=== PATIENT | female | born 1935 | race Caucasian/White ===

== ENCOUNTER → 2016-11-29 | Outpatient (CLI) | payer MEDICARE, BC ==
--- NOTE | 2016-11-29 16:00 | BD ---
EXAMINATION TYPE: MG DEXA axial skeleton. DATE OF EXAM: 11/29/2016 2:27 PM COMPARISON: NONE CLINICAL HISTORY: Height: 5 FT 2 1/2 IN Weight: 157 FRAX RISK QUESTIONS: Alcohol (3 or more units per day): YES Family History (Parent hip fracture): NO Glucocorticoids (More than 3mos): NO (Ex: prednisone, prednisolone, methylprednisolone, dexamethasone, and hydrocortisone). History of Fracture in Adulthood: NO Secondary Osteoporosis: 1. Type 1 Diabetes: NO 2. Hyperthyroidism: NO 3. Menopause before 45: YES 4. Malnutrition: NO 5. Chronic liver disease: NO Rheumatoid Arthritis: NO Current Tobacco Use: NO RISK FACTORS HISTORY OF: Drink Alcohol: YES Active: YES Postmenopausal woman: PART HYST AGE 26 Take estrogen and/or progesterone medications: How long: TOOK HORMONES AGE 27-43 MEDICATIONS: Additional Medications: METROPROLOL, Additional History: EXAM MEASUREMENTS: Bone mineral densitometry was performed using the [facility]. Bone mineral density as measured about the Lumbar spine is: ----- L1-L4(G/cm2): 1.349 T Score Values are as follows: ----- L2: 2.2 ----- L3: 1.6 ----- L4: 0.3 ----- L1-L4: 1.4 Bone mineral density has: Increased 14.4% since study of: 2004 Bone mineral density about the R hip (g/cm2): 0.793 Bone mineral density about the L hip (g/cm2): 0.783 T Score values are as follows: -----R Neck: -1.8 -----L Neck: -1.8 -----R Intertrochanter: -1.3 -----L Intertrochanter: -0.8 Bone mineral density has: Decreased -2.4% since study of: 2007 IMPRESSION: Osteopenia (T Score between -2.5 and -1 as noted by T score values There is slightly increased risk of fracture and the patient may be considered for treatment. Re-Screen 1-2 years. DEVAN HIPS NOTE: T-SCORE=SD OF THE YOUNG ADULT MEAN.
--- NOTE | 2016-11-30 11:36 | MM ---
Reason for exam: screening (asymptomatic). Last mammogram was performed 1 year ago. History: Patient is postmenopausal. Family history of breast cancer in 2 sisters at age 70. Took estrogen for 15 years beginning at age 26. Physical Findings: A clinical breast exam by your physician is recommended on an annual basis and results should be correlated with mammographic findings. MG Screening Mammo w CAD Bilateral CC and MLO view(s) were taken. Prior study comparison: November 29, 2015, bilateral MG screening mammo w CAD. September 10, 2013, bilateral digital screening mammo w/CAD. The breast tissue is heterogeneously dense. This may lower the sensitivity of mammography. No significant changes when compared with prior studies. ASSESSMENT: Benign, BI-RAD 2 RECOMMENDATION: Routine screening mammogram of both breasts in 1 year.
== END | disposition home or self-care (01) ==
LOC: RADBDWWP 13:48
PROVIDERS: ATTEND Internal Medicine
DX: Z12.31 Encounter for screening mammogram for malignant neoplasm of breast (principal); M85.88 Other specified disorders of bone density and structure, other site
CPT/HCPCS: 77080; G0202

== ENCOUNTER → 2017-12-19 | Outpatient (CLI) | payer MEDICARE, BC ==
--- NOTE | 2017-12-19 14:34 | XR ---
EXAMINATION TYPE: XR chest 2V DATE OF EXAM: 12/19/2017 COMPARISON: Prior chest x-ray 02/11/2010 HISTORY: Pleurisy, R09.1 TECHNIQUE: Frontal and lateral views of the chest are obtained. FINDINGS: There is no focal air space opacity, pleural effusion, or pneumothorax seen. The cardiac silhouette size is stable, enlarged. Lung volumes are prominent suggesting underlying COPD, some int erstitial prominence again noted at the lung bases. The osseous structures are intact. Minimal densit y at the right costophrenic angle may reflect a small area of scarring or atelectasis. IMPRESSION: Chronic cardiomegaly. Suspect some interstitial lung disease. Additional findings above, consider follow-up as indicated.
== END | disposition home or self-care (01) ==
LOC: RADXRMAIN 11:51
PROVIDERS: ATTEND Internal Medicine
DX: I51.7 Cardiomegaly (principal)
CPT/HCPCS: 71046

== ENCOUNTER → 2019-05-13 | Outpatient (CLI) | payer MEDICARE, BC ==
--- NOTE | 2019-05-13 15:25 | US ---
EXAMINATION TYPE: US pelvis complete transvag DATE OF EXAM: 05/13/2019 COMPARISON: NONE CLINICAL HISTORY: N93.8 dysfunctional uterine bleeding. Intermittent pelvic bleeding for 6 months. Ut erus and 1 ovary removed. Urinary incontinence. Meds for tachycardia, hemorrhoids TECHNIQUE: Transvaginal (TV) and Transabdominal (TA) . Transabdominal sonographic images of the pel vis were acquired. Transvaginal sonographic images were medically necessary to better assess the fol lowing anatomy: ovary Date of LMP: unknown EXAM MEASUREMENTS: Uterus: Surgically absent Endometrial Stripe: Surgically absent Right Ovary: unable to visualize Left Ovary: unable to visualize 1. Uterus: Surgically absent 2. Endometrium: Surgically absent 3. Right Ovary: Obscured by overlying bowel gas 4. Left Ovary: Obscured by overlying bowel gas 5. Bilateral Adnexa: appears wnl No free fluid in pelvic cul-de-sac. Images of the bladder both within normal limits. No suspicious pe lvic masses seen on images saved. IMPRESSION: As above, no suspicious acute findings identified.
== END | disposition home or self-care (01) ==
LOC: RADUSWWP 13:39
PROVIDERS: ATTEND Internal Medicine
DX: N93.8 Other specified abnormal uterine and vaginal bleeding (principal)
CPT/HCPCS: 76830; 76856

== ENCOUNTER → 2019-09-16 | Outpatient (CLI) | payer MEDICARE, BC ==
--- NOTE | 2019-09-16 08:59 | CT ---
EXAMINATION TYPE: CT abdomen pelvis wo con DATE OF EXAM: 09/16/2019 HISTORY: Left lower Quadrant pain. CT DLP: 362.1 mGycm. Automated Exposure Control for Dose Reduction was Utilized. TECHNIQUE: CT scan of the abdomen and pelvis is performed with oral but without IV contrast. COMPARISON: CT abdomen and pelvis February 02, 2010 FINDINGS: Within the limitations of a non-contrast study, the following observations are made. LUNG BASES: Slightly elevated left hemidiaphragm. Small pericardial effusion is seen but diminished in size from 2010 study. LIVER/GB: Gallbladder not seen and presumed surgically absent similar to prior. PANCREAS: No significant abnormality is seen. SPLEEN: Small splenule in splenic hilum axial image 15. ADRENALS: Slight nodular thickening to both adrenal glands favors benign lipid rich hyperplasia. KIDNEYS: No renal stones or hydronephrosis bilaterally. Simple appearing 1.9 cm thin-walled cyst post erior medial upper pole right kidney axial image 19 now present. BOWEL: Oral contrast reaches the rectum. There are diverticula in the left and sigmoid colon. There i s no convincing CT evidence for acute diverticulitis. Normal contrast-filled appendix is seen from ba se of cecum. No suspicious small or large bowel dilatation. Moderate prominence of fecal material in the rectum. GENITAL ORGANS: Uterus surgically absent or markedly atrophic. LYMPH NODES: No greater than 1cm abdominal or pelvic lymph nodes are appreciated. OSSEOUS STRUCTURES: Scoliotic curvature of the spine. Multilevel spurring. Moderate to severe scleros is and disc space narrowing L2-L3 level. Transitional type L6 vertebra. Multilevel facet arthropathy mid to lower lumbar spine. OTHER: No significant additional abnormality is seen. IMPRESSION: Colonic diverticulosis without convincing CT evidence for acute diverticulitis. No acute finding clearly seen to account for patient's symptoms of left lower quadrant pain.
--- NOTE | 2019-09-16 13:20 | XR ---
EXAMINATION TYPE: XR chest 2V DATE OF EXAM: 09/16/2019 COMPARISON: Prior chest x-ray 12/19/2017 HISTORY: Cough and COPD TECHNIQUE: Frontal and lateral views of the chest are obtained. FINDINGS: There is no focal air space opacity, pleural effusion, or pneumothorax seen. The cardiac silhouette size is stable, enlarged. There is eventration of the hemidiaphragms. Prominent lung volum es are again noted. Aorta is dense. There are prominent epicardial fat pads. The osseous structures are intact, degenerative disc changes are present in the visualized upper lumbar spine. IMPRESSION: Stable cardiomegaly
== END | disposition home or self-care (01) ==
LOC: RADCTMAIN 08:18
PROVIDERS: ATTEND Family Medicine
DX: K57.30 Diverticulosis of large intestine without perforation or abscess without bleeding (principal); I51.7 Cardiomegaly; J44.9 Chronic obstructive pulmonary disease, unspecified; N39.0 Urinary tract infection, site not specified
CPT/HCPCS: 71046; 74176

== ENCOUNTER → 2019-10-10 | Outpatient (CLI) | payer MEDICARE, BC ==
--- NOTE | 2019-10-10 18:09 | US ---
EXAMINATION TYPE: US carotid duplex BILAT DATE OF EXAM: 10/10/2019 COMPARISON: NONE CLINICAL HISTORY: R09.89 carotid bruit. EXAM MEASUREMENTS: RIGHT: Peak Systolic Velocity (PSV) cm/sec ----- Right CCA: 54.9 ----- Right ICA: 69.5 ----- Right ECA: 88.3 ICA/CCA ratio: 1.3 RIGHT: End Diastole cm/sec ----- Right CCA: 9.1 ----- Right ICA: 16.5 ----- Right ECA: 0.0 LEFT: Peak Systolic Velocity (PSV) cm/sec ----- Left CCA: 58.2 ----- Left ICA: 67.6 ----- Left ECA: 48.1 ICA/CCA ratio: 1.2 LEFT: End Diastole cm/sec ----- Left CCA: 10.6 ----- Left ICA: 19.3 ----- Left ECA: 0.0 VERTEBRALS (direction of flow): Right Vertebral: Antegrade Left Vertebral: Antegrade Rhythm: Normal Mild atherosclerotic changes with no significant velocity increases. IMPRESSION: 1. Mild atherosclerotic changes with no evidence of significant hemodynamic stenosis Criteria for Assigning % of Stenosis / Diameter reduction (Estimation based on the indirect measurements of the internal carotid artery velocities (ICA PSV). 1. Normal (no stenosis)=ICA PSV < 125 cm/s: ratio < 2.0: ICA EDV<40 cm/s. 2. Less than 50% stenosis=ICA PSV < 125 cm/s: ratio < 2.0: ICA EDV<40 cm/s. 3. 50 to 69% stenosis=ICA PSV of 125 to 230 cm/s: ration 2.0 ? 4.0: ICA EDV 40-100 cm/s. 4. Greater than 70% stenosis to near occlusion= ICA PSV > 230 cm/s: ratio > 4.0: ICA EDV > 100 cm/s. 5. Near occlusion= ICA PSV velocities may be low or undetectable: variable ratio and ICA EDV. 6. Total occlusion=unable to detect flow.
== END | disposition home or self-care (01) ==
LOC: RADUSMAIN 14:37
PROVIDERS: ATTEND Family Medicine
DX: I65.23 Occlusion and stenosis of bilateral carotid arteries (principal)
CPT/HCPCS: 93880

== ENCOUNTER → 2019-10-15 | Outpatient (CLI) | payer MEDICARE, BC ==
--- NOTE | 2019-10-15 12:39 | MR ---
MR brain without contrast HISTORY: Dizziness and giddiness, headaches Multiplanar multisequence imaging obtained through the br ain No comparisons There is no restricted diffusion. Cortical atrophy is present. Periventricular white matter shows con fluent and scattered areas of increased signal on inversion recovery T2-weighted sequences, there are greater than 50 lesions. No hemorrhage or hydrocephalus. There are normal vascular flow voids. Infla mmatory change present within the frontal sinus, ethmoid air cells and maxillary sinus. Orbits show s ymmetric appearance. Corpus callosum, pituitary, cervical medullary junction, cerebellopontine angles are within normal limits. IMPRESSION: Age-related atrophy and nonspecific white matter demyelination which may be related to ch ronic small vessel ischemia.
== END | disposition home or self-care (01) ==
LOC: RADMRIMAIN 10:01
PROVIDERS: ATTEND Family Medicine
DX: R90.89 Other abnormal findings on diagnostic imaging of central nervous system (principal); G31.1 Senile degeneration of brain, not elsewhere classified; G37.9 Demyelinating disease of central nervous system, unspecified; R09.89 Other specified symptoms and signs involving the circulatory and respiratory systems
CPT/HCPCS: 70551

== ENCOUNTER 2021-07-16 13:07 | Emergency (ER) | payer MEDICARE, BC ==
[2021-07-16 13:40] VITALS: TEMP 99.3
--- NOTE | 2021-07-16 15:38 | ED ---
Nausea/Vomiting/Diarrhea HPI - General Chief complaint: Nausea/Vomiting/Diarrhea Stated complaint: Vomiting,Fever,diarrhea Time Seen by Provider: 07/16/21 15:15 Source: patient, family, RN notes reviewed Mode of arrival: ambulatory Limitations: no limitations - History of Present Illness Initial comments: Patient is an 86-year-old female that presents to emergency room complaining of a three-day history of nausea vomiting and diarrhea. She notes that she feels that she has Covid so she can emergency room to get evaluated. She notes that she had some nasal drainage approximately a couple weeks ago which she reported was most likely due to weather change and ALLERGIES. She was otherwise well- appearing. She denied any fevers loss of sense of taste or smell. She was otherwise well-appearing. She denied chest pain shortness of breath headache constipation fever fatigue chills. - Related Data Allergies Allergy/AdvReac Type Severity Reaction Status Date / Time Iodinated Contrast Media Allergy Unknown Rash/Hives Verified 07/16/21 13:40 [Iodinated Contrast Media - IV Dye] Sulfa (Sulfonamide Allergy Rash/Hives Verified 07/16/21 13:40 Antibiotics) Review of Systems ROS Statement: Those systems with pertinent positive or pertinent negative responses have been documented in the HPI. ROS Other: All systems not noted in ROS Statement are negative. Past Medical History History of Any Multi-Drug Resistant Organisms: None Reported Past Surgical History: Cholecystectomy, Hysterectomy Past Psychological History: No Psychological Hx Reported Smoking Status: Never smoker Past Alcohol Use History: Rare Past Drug Use History: None Reported General Exam Limitations: no limitations General appearance: alert, in no apparent distress Head exam: Present: atraumatic, normocephalic, normal inspection Eye exam: Present: normal appearance, PERRL, EOMI. Absent: scleral icterus, conjunctival injection, periorbital swelling ENT exam: Present: normal exam, mucous membranes moist Neck exam: Present: normal inspection Respiratory exam: Present: normal lung sounds bilaterally. Absent: respiratory distress, wheezes, rales, rhonchi, stridor Cardiovascular Exam: Present: regular rate, normal rhythm, normal heart sounds. Absent: systolic murmur, diastolic murmur, rubs, gallop, clicks Extremities exam: Present: normal inspection, full ROM, normal capillary refill. Absent: tenderness, pedal edema, joint swelling, calf tenderness Neurological exam: Present: alert, oriented X3 Psychiatric exam: Present: normal affect, normal mood Skin exam: Present: warm, dry, intact, normal color. Absent: rash Course Vital Signs 07/16/21 13:35 Temperature 99.3 F Pulse Rate 123 H Respiratory 20 Rate Blood Pressure 143/72 O2 Sat by Pulse 94 L Oximetry Medical Decision Making - Medical Decision Making 86-year-old female complaining nausea vomiting and diarrhea. He tested for Covid. Covid test ordered. Covid test positive. Patient wishes to undergo monoclonal antibody infusion, she does meet criteria. Patient is afebrile and saturating well on room air. Patient is agreement with discharge home after IV infusion. Case discussed with Dr. Torres, patient discharge home. - Lab Data Lab Results 07/16/21 Range/Units 13:41 Coronavirus (PCR) Detected A (Not Detectd) Disposition Clinical Impression: COVID Disposition: HOME SELF-CARE Condition: Stable Instructions (If sedation given, give patient instructions): Coronavirus Disease 2019 (COVID-19) Additional Instructions: Please return to the Emergency Department if symptoms worsen or any other concerns. Follow-up with primary care 1-2 days. Quarantine per CDC guidelines. Take Tylenol and Motrin alternating every 3 hours for fever. Is patient prescribed a controlled substance at d/c from ED?: No Referrals: Neida Baca MD [Primary Care Provider] - 1-2 days Time of Disposition: 15:37
[2021-07-16] MEDS ORDERED: SODIUM CHLORIDE 0.9% 50 ML IVPB ONE (16:30)
[2021-07-16] MEDS ORDERED: ONDANSETRON 4 MG/2 ML VIAL IVP STA (16:38)
[2021-07-16] MEDS ORDERED: CASIRIVIMAB (REGN10933) (EUA) 600 MG, IMDEVIMAB (REGN10987) (EUA) 600 MG in SODIUM CHLO... IVPB ONE (16:45)
[2021-07-16 18:01] VITALS: RESP 18
[2021-07-16 19:05] VITALS: BP 160/74; PULSE 96
== END 2021-07-16 20:05 | disposition home or self-care (01) ==
LOC: EC 13:07
DX: U07.1 COVID-19 (principal); Z88.2 Allergy status to sulfonamides; Z90.49 Acquired absence of other specified parts of digestive tract; Z90.710 Acquired absence of both cervix and uterus
CPT/HCPCS: 99284; 96365; 96375; 87635; J2405

== ENCOUNTER 2021-11-02 16:17 | Emergency (ER) | payer OTHER, MEDICARE, BC ==
[2021-11-02 16:34] VITALS: RESP 18; TEMP 97.4
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
--- NOTE | 2021-11-02 18:06 | XR ---
EXAMINATION TYPE: XR chest 1V portable DATE OF EXAM: 11/02/2021 5:20 PM COMPARISON:Chest radiographs from the 11/01/2019 TECHNIQUE: Frontal view of the chest. CLINICAL INDICATION:Female, 86 years old with history of Pain; FINDINGS: Lungs/Pleura: There is no evidence of pleural effusion, focal consolidation, or pneumothorax. Pulmonary vascularity: Unremarkable. Heart/mediastinum: Cardiomediastinal silhouette is unremarkable. Musculoskeletal: No acute osseous pathology. IMPRESSION: No acute cardiopulmonary disease/process.
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
[2021-11-02 18:21] VITALS: BP 165/67; PULSE 99
== END 2021-11-02 18:47 | disposition home or self-care (01) ==
LOC: EC 16:17
DX: Z04.1 Encounter for examination and observation following transport accident (principal)
CPT/HCPCS: 70450; 71045; 72125; 72170; 99284

== ENCOUNTER → 2021-11-10 | Outpatient (CLI) | payer MEDICARE, BC ==
--- NOTE | 2021-11-10 16:22 | US ---
EXAMINATION TYPE: US carotid duplex BILAT DATE OF EXAM: 11/10/2021 COMPARISON: 10/10/2019 CLINICAL HISTORY: 86-year-old female I31.3 PERICARDIAL EFFUSION I65.23 Carotid stenosis. TECHNIQUE: Carotid duplex ultrasound examination. Indirect Doppler criteria was utilized. FINDINGS: EXAM MEASUREMENTS: RIGHT: Peak Systolic Velocity (PSV) cm/sec ----- Right CCA: 106 ----- Right ICA: 85.1 ----- Right ECA: 125 ICA/CCA ratio: .8 RIGHT: End Diastole cm/sec ----- Right CCA: 14.9 ----- Right ICA: 22.1 ----- Right ECA: 0 LEFT: Peak Systolic Velocity (PSV) cm/sec ----- Left CCA: 114 ----- Left ICA: 90 ----- Left ECA: 108 ICA/CCA ratio: .8 LEFT: End Diastole cm/sec ----- Left CCA: 18.2 ----- Left ICA: 16.9 ----- Left ECA: 0 VERTEBRALS (direction of flow): Right Vertebral: Antegrade Left Vertebral: Antegrade Rhythm: Normal Propeller Inspector notes: No significant stenosis seen IMPRESSION: No hemodynamically significant internal carotid artery stenosis on either side. Criteria for Assigning % of Stenosis / Diameter reduction (Estimation based on the indirect measurements of the internal carotid artery velocities (ICA PSV). 1. Normal (no stenosis)=ICA PSV < 125 cm/s: ratio < 2.0: ICA EDV<40 cm/s. 2. Less than 50% stenosis=ICA PSV < 125 cm/s: ratio < 2.0: ICA EDV<40 cm/s. 3. 50 to 69% stenosis=ICA PSV of 125 to 230 cm/s: ration 2.0 ? 4.0: ICA EDV 40-100 cm/s. 4. Greater than 70% stenosis to near occlusion= ICA PSV > 230 cm/s: ratio > 4.0: ICA EDV > 100 cm/s. 5. Near occlusion= ICA PSV velocities may be low or undetectable: variable ratio and ICA EDV. 6. Total occlusion=unable to detect flow.
--- NOTE | 2021-11-11 12:11 | ECHOF ---
Referral Reason:SOB MEASUREMENTS -------- HEIGHT: 162.6 cm WEIGHT: 53.5 kg BP: RVIDd: 3.4 cm (< 3.3) IVSd: 1.2 cm (0.6 - 1.1) LVIDd: 3.4 cm (3.9 - 5.3) LVPWd: 1.2 cm (0.6 - 1.1) IVSs: 1.2 cm LVIDs: 2.9 cm LVPWs: 1.3 cm LA Diam: 3.4 cm (2.7 - 3.8) Ao Diam: 3.0 cm (2.0 - 3.7) AV Cusp: 1.5 cm (1.5 - 2.6) LA Diam: 3.5 cm (2.7 - 3.8) MV E Jayson: 0.75 m/s MV DecT: 298 ms MV A Jayson: 1.54 m/s MV E/A Ratio: 0.46 RAP: 5.00 mmHg RVSP: 31.44 mmHg FINDINGS -------- Sinus rhythm. This was a technically adequate study. The left ventricular size is normal. There is mild concentric left ventricular hypertrophy. Overa ll left ventricular systolic function is normal with, an EF between 55 - 60 %. The right ventricle is mildly enlarged. The left atrial size is normal. The right atrial size is normal. There is mild aortic valve sclerosis. There is mild aortic regurgitation. Mild mitral annular calcification present. Mild mitral regurgitation is present. The peak and me an MV gradients are 16.03mmHg 4.36mmHg as measured by doppler. The tricuspid valve appears structurally normal. Mild tricuspid regurgitation present. Right vent ricular systolic pressure is normal at < 35 mmHg. The right ventricular systolic pressure, as measu red by Doppler, is 31.44mmHg. Trace/mild (physiologic) pulmonic regurgitation. The aortic root size is normal. There is a small, generalized pericardial effusion present. CONCLUSIONS -------- 1. There is mild concentric left ventricular hypertrophy. 2. Overall left ventricular systolic function is normal with, an EF between 55 - 60 %. 3. The right ventricle is mildly enlarged. 4. The left atrial size is normal. 5. There is mild aortic regurgitation. 6. Mild mitral regurgitation is present. 7. The peak and mean MV gradients are 16.03mmHg 4.36mmHg as measured by doppler. 8. Mild tricuspid regurgitation present. 9. Trace/mild (physiologic) pulmonic regurgitation. 10. There is a small, generalized pericardial effusion present. OCCASIONAL CAREGIVER: Sherrie Araujo RDCS
== END | disposition home or self-care (01) ==
LOC: RADUSWWP 14:22
PROVIDERS: ATTEND Internal Medicine
DX: I31.3 Pericardial effusion (noninflammatory) (principal); I08.8 Other rheumatic multiple valve diseases
CPT/HCPCS: 93306; 93880

== ENCOUNTER → 2024-02-14 | Outpatient (CLI) | payer MEDICARE, BC ==
--- NOTE | 2024-02-14 15:54 | CA ---
Transthoracic Echo Report Name: Reva Mendoza Age: 88 Gender: F : 1935 Exam Date: 02/14/2024 13:35 Exam Location: [place] [facility] Ht (in): 63 Wt (lb): 142 Ordering Physician: Erendira Burton MD Attending/Referring Phys: Occupational Health Specialist China Guajardo RDCS Procedure CPT: Indications: I35.1 NONRHEUMATIC AORTIC (VALVE) INSUFFICIENCY Cardiac Hx: Technical Quality: Good Contrast 1: Total Dose (mL): Contrast 2: Total Dose (mL): MEASUREMENTS (Male / Female) Normal Values 2D ECHO LV Diastolic Diameter PLAX 3.5 cm 4.2 - 5.9 / 3.9 - 5.3 cm LV Systolic Diameter PLAX 2.5 cm IVS Diastolic Thickness 0.8 cm 0.6 - 1.0 / 0.6 - 0.9 cm LVPW Diastolic Thickness 1.0 cm 0.6 - 1.0 / 0.6 - 0.9 cm LV Relative Wall Thickness 0.5 LVOT Diameter 1.9 cm LV Diastolic Volume MOD BP 36.7 cm??? 67 - 155 / 56 - 104 cm??? LV Systolic Volume MOD BP 12.2 cm??? 22 - 58 / 19 - 49 cm??? LV Ejection Fraction MOD BP 66.7 % >= 55 % LV Cardiac Index MOD BP 1092.8 cm???/min???m??? LV Diastolic Volume MOD 4C 34.4 cm??? LV Systolic Volume MOD 4C 12.0 cm??? LV Ejection Fraction MOD 4C 65.2 % LV Cardiac Index MOD 4C 1000.8 cm???/min???m??? LV Diastolic Length 4C 6.7 cm LV Systolic Length 4C 5.5 cm LV Diastolic Volume MOD 2C 38.6 cm??? LV Systolic Volume MOD 2C 12.4 cm??? LV Ejection Fraction MOD 2C 67.9 % LV Cardiac Index MOD 2C 1167.5 cm???/min???m??? LV Diastolic Length 2C 6.6 cm LV Systolic Length 2C 5.5 cm LA Volume 49.6 cm??? 18 - 58 / 22 - 52 cm??? LA Volume Index 29.1 cm???/m??? 16 - 28 cm???/m??? Ascending Aorta Diameter 3.4 cm DOPPLER AV Peak Velocity 142.1 cm/s AV Peak Gradient 8.1 mmHg AV Mean Velocity 92.5 cm/s AV Mean Gradient 4.1 mmHg AV Velocity Time Integral 27.1 cm LVOT Peak Velocity 126.2 cm/s LVOT Peak Gradient 6.4 mmHg LVOT Velocity Time Integral 21.9 cm LVOT Stroke Volume 60.8 cm??? LVOT Stroke Volume Index 36.4 ml/m??? LVOT Cardiac Index 2712.3 cm???/min???m??? AV Area Cont Eq vti 2.2 cm??? AV Area Cont Eq pk 2.5 cm??? MV Peak Velocity 187.4 cm/s MV Peak Gradient 14.0 mmHg MV Mean Velocity 97.5 cm/s MV Mean Gradient 4.3 mmHg MV Velocity Time Integral 43.2 cm MV Area PHT 1.7 cm??? Mitral E Point Velocity 98.8 cm/s Mitral A Point Velocity 167.8 cm/s Mitral E to A Ratio 0.6 MV Deceleration Time 459.7 ms TR Peak Velocity 245.9 cm/s TR Peak Gradient 24.2 mmHg Right Atrial Pressure 5.0 mmHg Pulmonary Artery Systolic Pressu 29.2 mmHg Right Ventricular Systolic Press 29.2 mmHg PV Peak Velocity 132.7 cm/s PV Peak Gradient 7.0 mmHg FINDINGS Left Ventricle Left ventricular ejection fraction is estimated at 60-65 %. Mildly increased posterior wall thickness. Left ventricular cavity size small. No obvious regional wall motion abnormalities. Mid cavitary gradient at rest of 24mmHg. Right Ventricle Normal right ventricular size and function. Right ventricular systolic pressure within normal limits. Right Atrium Normal right atrial size. Left Atrium Mildly increased left atrial volume. Mitral Valve Mitral valve thickened. Mitral annular calcification. No evidence for mitral valve prolapse. Mild mitral regurgitation. Aortic Valve Trileaflet aortic valve. Diffuse thickening (sclerosis) of the aortic valve cusps without reduced excursion. No aortic stenosis. Trace aortic regurgitation. Tricuspid Valve Structurally normal tricuspid valve. No tricuspid stenosis. Mild tricuspid regurgitation. Pulmonic Valve Structurally normal pulmonic valve. No pulmonic stenosis. No pulmonic regurgitation. Pericardium Small pericardial effusion. Aorta Normal size aortic root and proximal ascending aorta. CONCLUSIONS Mildly increased left ventricular wall thickness Left ventricular ejection fraction is 60-65% Left ventricular cavity size small Mild mid cavitary gradient Mild mitral regurgitation Trace aortic regurgitation Mild tricuspid regurgitation Small pericardial effusion without cardiac tamponade physiology Previewed by: Dr. Jose R Conrad DO (Electronically Signed) Final Date: 14 Feb 2024 15:53
== END | disposition home or self-care (01) ==
LOC: RADECHMAIN 13:26
PROVIDERS: ATTEND Internal Medicine
DX: I08.3 Combined rheumatic disorders of mitral, aortic and tricuspid valves (principal); I31.39 Other pericardial effusion (noninflammatory)
CPT/HCPCS: 93306